=== PATIENT | male | born 1940 | race Caucasian/White ===

== ENCOUNTER → 2019-03-25 | Outpatient (CLI) | payer MEDICARE ==
--- NOTE | 2019-03-25 22:30 | Diagnostic Imaging Report ---
PROCEDURE: US bilateral lower extremity arterial. TECHNIQUE: Multiple real-time grayscale images were obtained through both lower extremity arterial systems with color Doppler imaging and color Doppler spectral analysis. INDICATION: Lower extremity claudication symptoms. Cramping. History of hypertension. CORRELATION STUDY: None. FINDINGS: The major arteries within both legs are patent to the level of the ankle. There is visualization of flow in the dorsalis pedis and posterior tibial arteries, bilaterally. There is no significant velocity change or findings to suggest a focal area of stenosis. Small amount of edema is noted within the subcutaneous tissues at the level of the right ankle. IMPRESSION: Patent bilateral lower extremity arterial duplex Doppler assessment. No findings to suggest significant flow limitations or stenosis at this time. Dictated by: Dictated on workstation # [id number]
== END ==
LOC: RAD 12:34
PROVIDERS: ATTEND Internal Medicine Cardiovascular Disease
DX: I70.213 Atherosclerosis of native arteries of extremities with intermittent claudication, bilateral legs (principal); I10 Essential (primary) hypertension
CPT/HCPCS: 93925

== ENCOUNTER → 2019-05-25 | Outpatient (CLI) | payer MEDICARE | LOC: SLEEP 18:04 | PROVIDERS: ATTEND Otolaryngology Otolaryngology/Facial Plastic Surgery | DX: G47.33 Obstructive sleep apnea (adult) (pediatric) (principal); H90.3 Sensorineural hearing loss, bilateral; M54.2 Cervicalgia | CPT/HCPCS: 95811 ==